=== PATIENT | female | born 1990 | race Caucasian/White ===

== ENCOUNTER 2017-09-28 12:24 | Emergency (ER) | payer SELFPAY ==
[2017-09-28 12:36] VITALS: BP 150/92; PULSE 93; RESP 22; TEMP 98.7; O2SAT 92
[2017-09-28] MEDS ORDERED: ASPI-516 CHEW (12:46)
[2017-09-28] MEDS ORDERED: SODIUM CHLOR 0.9% 1000 ML INJ 1,000 ML IV SCH (12:48)
--- NOTE | 2017-09-28 12:55 | PD ---
HPI Chief Complaint: Abdominal Pain Time Seen by Provider: 12:42 Travel History International Travel<30 days: No Contact w/Intl Traveler<30days: No Traveled to known affect area: No History of Present Illness HPI 27-year-old female presents to the emergency department for evaluation of abdominal pain that has been ongoing for 3 days. She states that her daughter was sick with a virus that she assumed she had a virus 2. However, she denies any fevers, cough, congestion. Patient states the pain is in the left lower quadrant. She states the last time she had this pain, she had PID. She denies any new sexual partners. She reports one sexual partner in the past 6 months. She denies any abnormal vaginal discharge. Patient denies any nausea, vomiting , diarrhea, constipation. No decreased appetite. Patient states that she was able to eat steak and shake while waiting for a bed. She reports no difficulties with the meal. She has no chronic medical problems and takes no prescribed medications. Patient is a G3, P1 with 3 previous miscarriages, one live . Patient reports last menstrual period was 2 weeks ago. 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) Influenza Vaccination: No ?: Unknown LMP: 09/14/17 : 4 Para: 1 Miscarriage: 3 Past Surgical History Surgical History: No Previous Surgery Social History Alcohol Use: Yes (occasionally) Tobacco Use: Yes Substance Use: No Allergies-Medications (Allergen,Severity, Reaction): Coded Allergies: No Known Allergies (Unverified , 09/28/17) Reported Meds & Prescriptions Reported Meds & Active Scripts Active Reported Aspirin 81 Mg Chew 81 Mg CHEW DAILY Review of Systems Except as stated in HPI: all other systems reviewed are Neg Physical Exam Narrative GENERAL: Well-nourished, well-developed female patient, ambulatory. Afebrile. SKIN: Focused skin assessment warm/dry. HEAD: Normocephalic. Atraumatic. EYES: No scleral icterus. No injection or drainage. NECK: Supple, trachea midline. No JVD or lymphadenopathy. CARDIOVASCULAR: Regular rate and rhythm without murmurs, gallops, or rubs. RESPIRATORY: Breath sounds equal bilaterally. No accessory muscle use. Lungs sounds clear to auscultation GASTROINTESTINAL: Abdomen soft and nondistended. Patient has mild tenderness over LUQ, LLQ. No rebound tenderness. MUSCULOSKELETAL: No cyanosis, or edema. BACK: Nontender without obvious deformity. No CVA tenderness. Data Data Last Documented VS Vital Signs Date Time Temp Pulse Resp B/P (MAP) Pulse Ox O2 Delivery O2 Flow Rate FiO2 09/28/17 12:36 98.7 93 22 150/92 (111) 92 Orders Orders Complete Blood Count With Diff (09/28/17 12:48) Comprehensive Metabolic Panel (09/28/17 12:48) Lipase (09/28/17 12:48) Urinalysis - C+S If Indicated (09/28/17 12:48) Iv Access Insert/Monitor (09/28/17 12:48) Ecg Monitoring (09/28/17 12:48) Oximetry (09/28/17 12:48) Sodium Chlor 0.9% 1000 Ml Inj (Ns 1000 M (09/28/17 12:48) Sodium Chloride 0.9% Flush (Ns Flush) (09/28/17 13:00) Ed Urine Pregnancytest Poc (09/28/17 12:48) Gc And Chlamydia Pcr (09/28/17 12:48) Wet Prep Profile (09/28/17 12:48) Ketorolac Inj (Toradol Inj) (09/28/17 14:30) Labs Laboratory Tests Test 09/28/17 13:00 09/28/17 13:04 09/28/17 14:16 White Blood Count 7.7 TH/MM3 Red Blood Count 4.10 MIL/MM3 Hemoglobin 12.5 GM/DL Hematocrit 37.0 % Mean Corpuscular Volume 90.1 FL Mean Corpuscular Hemoglobin 30.6 PG Mean Corpuscular Hemoglobin Concent 33.9 % Red Cell Distribution Width 13.1 % Platelet Count 178 TH/MM3 Mean Platelet Volume 9.7 FL Neutrophils (%) (Auto) 65.2 % Lymphocytes (%) (Auto) 22.9 % Monocytes (%) (Auto) 9.2 % Eosinophils (%) (Auto) 2.3 % Basophils (%) (Auto) 0.4 % Neutrophils # (Auto) 5.0 TH/MM3 Lymphocytes # (Auto) 1.8 TH/MM3 Monocytes # (Auto) 0.7 TH/MM3 Eosinophils # (Auto) 0.2 TH/MM3 Basophils # (Auto) 0.0 TH/MM3 CBC Comment DIFF FINAL Differential Comment Blood Urea Nitrogen 13 MG/DL Creatinine 0.44 MG/DL Random Glucose 85 MG/DL Total Protein 6.8 GM/DL Albumin 3.3 GM/DL Calcium Level 8.7 MG/DL Alkaline Phosphatase 65 U/L Aspartate Amino Transf (AST/SGOT) 10 U/L Alanine Aminotransferase (ALT/SGPT) 15 U/L Total Bilirubin 0.5 MG/DL Sodium Level 139 MEQ/L Potassium Level 3.7 MEQ/L Chloride Level 106 MEQ/L Carbon Dioxide Level 28.0 MEQ/L Anion Gap 5 MEQ/L Estimat Glomerular Filtration Rate 174 ML/MIN Lipase 62 U/L Urine Color YELLOW Urine Turbidity CLEAR Urine pH 7.0 Urine Specific Eads 1.025 Urine Protein NEG mg/dL Urine Glucose (UA) NEG mg/dL Urine Ketones NEG mg/dL Urine Occult Blood NEG Urine Nitrite NEG Urine Bilirubin NEG Urine Urobilinogen LESS THAN 2.0 MG/DL Urine Leukocyte Esterase NEG Urine WBC 1 /hpf Urine Squamous Epithelial Cells 1 /hpf Urine Mucus FEW /lpf Microscopic Urinalysis Comment CULT NOT INDICATED Clue Cells (Wet Prep) NONE SEEN Vaginal Trichomonas (Wet Prep) NONE SEEN Vaginal Yeast (Wet Prep) NONE SEEN MDM Medical Decision Making Medical Screen Exam Complete: Yes Emergency Medical Condition: Yes Medical Record Reviewed: Yes Differential Diagnosis gastroenteritis vs. UTI vs. cervicitis vs. diverticulitis Narrative Course 27-year-old female presents to the emergency department for evaluation of left lower abdominal pain for 3 days. Patient does appear well on exam and is able to eat without difficulty. CBC, CMP, lipase, UA, urine test are ordered and pending. Patient gives verbal consent for pelvic exam. CBC shows no acute abnormality. CMP .shows no acute abnormality. Lipase is 62. UA is negative for infection. UPT is negative. Wet prep is negative for clue cells, Trichomonas, yeast. Patient simply she may have pulled a muscle on reexamination. She is given strict return options. She does appear well on exam. Patient verbalizes agreement to this. She'll be discharged with a prescription for ibuprofen for pain. Patient verbalizes agreement and understanding. The patient was discharged in stable condition with instructions, including return instructions and follow up instructions. Diagnosis Primary Impression: Abdominal pain Qualified Codes: R10.9 - Unspecified abdominal pain Referrals: Primary Care Physician call for appointment Patient Instructions: Abdominal Pain (ED), General Instructions Departure Forms: Tests/Procedures, Work Release Enter return to work date: Sep 30, 2017 Additional Instructions: Take ibuprofen as started as needed with food for pain. Follow-up with your primary care physician. Return to the emergency department for any acute worsening symptoms including, but not limited to, worsening pain, right lower quadrant pain, intractable vomiting, fevers. Med/Other Pt SpecificInfo: Prescription(s) given Scripts Ibuprofen (Ibuprofen) 600 Mg Tab 600 MG PO TID Y for PAIN SCALE 1 TO 10, #21 TAB 0 Refills Prov: Fabienne Jay 09/28/17 Disposition: 01 DISCHARGE HOME Condition: Stable Fabienne Jay Sep 28, 2017 12:55
[2017-09-28] MEDS ORDERED: SODIUM CHLORIDE 0.9% FLUSH 10 ML FLUSH IV FLUSH PRN (13:00)
[2017-09-28 13:46] LABS: BASOPHIL % 0.4 % (0.0-2.0); EOSINOPHIL # 0.2 TH/MM3 (0-0.4); EOSINOPHIL % 2.3 % (0.0-4.0); HEMO FLAGS DIFF FINAL; LYMPH % 22.9 % (9.0-44.0); LYMPHOCYTE # 1.8 TH/MM3 (1.0-4.8); MEAN CELL VOLUME 90.1 FL (80.0-100.0); MEAN CORPUSCULAR HEMOGLOBIN 30.6 PG (27.0-34.0); MEAN CORPUSCULAR HGB CONC 33.9 % (32.0-36.0); MONO % 9.2 % (0.0-8.0); NEUT % 65.2 % (16.0-70.0); PLATELET COUNT 178 TH/MM3 (150-450); RED CELL DISTRIBUTION WIDTH 13.1 % (11.6-17.2); WHITE BLOOD COUNT 7.7 TH/MM3 (4.0-11.0)
[2017-09-28 14:13] LABS: ANION GAP 5 MEQ/L (5-15); AST (GOT) 10 U/L (15-37); BLOOD UREA NITROGEN 13 MG/DL (7-18); CHLORIDE 106 MEQ/L (98-107); GLOMERULAR FILTRATION RATE 174 ML/MIN (>89); POTASSIUM 3.7 MEQ/L (3.5-5.1); SODIUM (NA) 139 MEQ/L (136-145)
[2017-09-28 14:14] LABS: ALT (GPT) 15 U/L (10-53)
[2017-09-28 14:17] LABS: ALKALINE PHOSPHATASE 65 U/L (45-117); TOTAL BILIRUBIN ADULT 0.5 MG/DL (0.2-1.0)
[2017-09-28 14:28] LABS: BLOOD, URINE NEG (NEG); COMMENT (UR) CULT NOT INDICATED; CULTURE IF INDICATED CULT NOT INDICATED; GLUCOSE,URINE NEG (NEG); KETONE, URINE NEG (NEG); MUCUS URINE FEW /lpf (OCC); NITRITE,URINE NEG (NEG); SQUAMOUS EPITHELIAL CELL URINE 1 /hpf (0-5); URINE COLOR YELLOW (YELLW/STRAW)
[2017-09-28] MEDS ORDERED: KETOROLAC TROMETHAMINE 30 MG/ML (IVP) VIAL IV PUSH ONE (14:30)
[2017-09-28] MEDS ORDERED: IBUP-232 PO (15:20)
[2017-09-28 16:15] LABS: CHLAMYDIA PCR DETECTED (NOT DETECT); NEISSERIA PCR NOT DETECTED (NOT DETECT)
[2017-09-28 16:16] VITALS: BP 125/88; PULSE 78; RESP 20; O2SAT 98
== END 2017-09-28 16:18 | disposition home or self-care (01) ==
LOC: NEPE 12:24
DX: R10.30 Lower abdominal pain, unspecified (principal); Z72.0 Tobacco use
CPT/HCPCS: 80053; 81001; 83690; 84703; 85025; 87210; 87491; 87591; 96361; 96374; 99284; J1885; J7030

== ENCOUNTER → 2018-04-19 | Outpatient (CLI) | payer MEDICAID ==
[~2018-04-19] MED LIST: ASPI-516 CHEW; IBUP-232 PO
== END ==
LOC: HPND 10:05
PROVIDERS: ATTEND Obstetrics & Gynecology
DX: O99.111 Other diseases of the blood and blood-forming organs and certain disorders involving the immune mechanism complicating pregnancy, first trimester (principal); Z36.82 Encounter for antenatal screening for nuchal translucency; O99.331 Smoking (tobacco) complicating pregnancy, first trimester
CPT/HCPCS: 36415; 76813

== ENCOUNTER → 2018-05-25 | Outpatient (CLI) | payer MEDICAID | LOC: HPND 14:36 | PROVIDERS: ATTEND Obstetrics & Gynecology | DX: O99.112 Other diseases of the blood and blood-forming organs and certain disorders involving the immune mechanism complicating pregnancy, second trimester (principal); D68.51 Activated protein C resistance; O99.332 Smoking (tobacco) complicating pregnancy, second trimester | CPT/HCPCS: 76811 ==

== ENCOUNTER 2018-10-04 14:04 | Inpatient (IN) ==
[2018-10-04 15:20] LABS: Baso % (Auto) 0.2 % (0.0-2.0); Eos # (Auto) 0.2 th/mm3 (0.0-0.4); Eos % (Auto) 1.4 % (0.0-4.0); Hematocrit 38.2 % (35.0-46.0); Hemoglobin 13.2 gm/dL (11.6-15.3); Lymph # (Auto) 2.7 th/mm3 (1.0-4.8); Lymph % (Auto) 17.8 % (9.0-44.0); Mean Corpuscular HGB Conc 34.6 % (32.0-36.0); Mean Corpuscular Hemoglobin 31.5 pg (27.0-34.0); Mean Corpuscular Volume 90.9 fL (80.0-100.0); Mono # (Auto) 1.1 th/mm3 (0.0-0.9); Mono % (Auto) 7.1 % (0.0-8.0); Neut # (Auto) 11.2 th/mm3 (1.8-7.7); Neut % (Auto) 73.5 % (16.0-70.0); Platelet Count 231 th/mm3 (150-450); Red Cell Distribution Width 13.8 % (11.6-17.2); White Blood Count 15.2 th/mm3 (4.0-11.0)
[2018-10-04 15:29] LABS: INR 0.9 Ratio; Prothrombin Time 9.4 sec (9.8-11.6)
[2018-10-04] MEDS ORDERED: fentaNYL Citrate Inj 100 MCG/2 ML Ampul ONE (15:38)
[2018-10-04 15:47] LABS: Bilirubin,Urine Negative (Negative); Clarity,Urine Hazy (Clear); Color,Urine Yellow (Yellw/Straw); Glucose,Urine (UA) Negative (Negative); Hyaline Casts,Urine 1 /lpf (0-3); Leukocyte Esterase,Urine Moderate (Negative); Mucus,Urine Few /lpf (Occasional); Nitrite,Urine Negative (Negative); Specific Gravity,Urine 1.008 (1.002-1.035); Squamous Epithelial Cell,Urine 4 /hpf (0-5)
[2018-10-04 15:49] LABS: Amphetamine Urine With Conf Neg (Neg); Benzodiazepine Urine With Conf Neg (Neg)
[2018-10-04] MEDS ORDERED: Diphtheria/Tetanus/Pertussis Vaccine Inj 0.5 ML Syringe IM ONE (16:00)
[2018-10-04] MEDS ORDERED: Measles/Mumps/Rubella Vaccine Inj 0.5 ML Vial SQ ONE (16:00)
[2018-10-04] MEDS ORDERED: Influenza (Quadrivalent) Vaccine 0.5 ML Syringe IM ONE (16:00)
[2018-10-04] MEDS ORDERED: Sodium Chlor 0.9% Inj 500 ML IV.SIG PRN (16:05)
[2018-10-04] MEDS ORDERED: Oxytocin 30 Units/500ml Premix 30 UNITS/500 ML BAG IV.SIG ONE (16:05)
[2018-10-04] MEDS ORDERED: Sod Chloride 0.9% Inj 1,000 ML IV.CONT PRN (16:05)
[2018-10-04] MEDS ORDERED: Naloxone Inj 0.4 MG/ML Vial IV.PUSH PRN ×2 (16:05→19:17)
[2018-10-04] MEDS ORDERED: fentaNYL Citrate Inj 100 MCG/2 ML Ampul IV.PUSH PRN ×2 (16:05)
[2018-10-04] MEDS ORDERED: Citric Acid/Sodium Citrate Liq 30 ML UDC PO SCH (16:15)
[2018-10-04] MEDS ORDERED: fentaNYL 2MCG-Bupiv 0.125% Epi 150 ML EPIDURAL ONE (16:22)
[2018-10-04] MEDS ORDERED: fentaNYL Citrate Inj 100 MCG/2 ML Ampul EPIDURAL ONE (18:00)
[2018-10-04] MEDS ORDERED: fentaNYL 2MCG-Bupiv 0.125% Epi 150 ML EPIDURAL PRN (18:00)
[2018-10-04] MEDS ORDERED: Bisacodyl 10 MG Supp RECTAL PRN (19:17)
[2018-10-04] MEDS ORDERED: Oxytocin 30 Units/500ml Premix 30 UNITS/500 ML BAG IV.CONT PRN (19:17)
--- NOTE | 2018-10-04 19:22 | P.OBDELI ---
Weeks Gestation: 37 Patient Started Active Labor: Yes Medical Induction of Labor: No Artificial Rupture of Membrane: Yes Anesthesia: Epidural Episiotomy: none Vaginal Delivery: Normal Presentation: Occiput anterior Nuchal Cord: None Delayed Cord Clamping (45 sec): Yes Placenta: Spontaneous delivery, Uterus explored + Laceration: 1 deg (B/L periurethral ) Repair: Chromic interrupted Estimated blood loss (mL): 100 : Female Infant score (1 min): 8 score (5 min): 9
[2018-10-04] MEDS: Acetaminophen 325 MG Tablet PO PRN ×2 (19:47→23:47)
[2018-10-04] MEDS ORDERED: Zolpidem Tartrate 5 MG Tablet PO PRN (21:00)
[2018-10-04] MEDS: Witch Hazel 50%/Glyderin 12.5% 40 Pad Jar RECTAL PRN (22:16)
[2018-10-04] MEDS: Benzocaine 20% Top Spray 60 ML Can TOPICAL PRN (22:16)
[2018-10-04] MEDS: Senna/Docusate Sodium 8.6/50 MG Tablet PO SCH (22:16)
[2018-10-05] MEDS: Acetaminophen 325 MG Tablet PO PRN (04:58)
[2018-10-05] MEDS ORDERED: Enoxaparin Inj 40 MG/0.4 ML Syringe SQ SCH ×2 (09:00→21:00)
[2018-10-05] MEDS: Senna/Docusate Sodium 8.6/50 MG Tablet PO SCH ×2 (09:15→21:57)
[2018-10-05] MEDS ORDERED: Enoxaparin Inj 60 MG/0.6 ML Syringe SQ SCH (21:00)
--- NOTE | 2018-10-06 07:05 | P.PNOB ---
Subjective Post day: 2 Interval history: Doing well, pain controlled, ambulating without difficulty, voiding spontaneously, vaginal bleeding less than menses Objective Vital Signs/I&O: Vital Signs 10/05/18 08:00 10/05/18 08:30 10/05/18 20:00 Temperature 98.1 F 98.2 F 98.0 F Pulse Rate 76 70 Respiratory Rate 20 18 Blood Pressure 118/69 125/74 Intake & Output 10/05/18 10/06/18 10/06/18 18:59 06:59 18:59 Intake Total 200 / 200 100 / 100 Balance 200 / 200 100 / 100 Intake: IV 200 / 200 100 / 100 Ofirmev Inj 1,000 mg In 100 ml 200 / 200 100 / 100 @ 400 mls/hr IV.SIG Q6H [facility] Rx# :[id number] Result Diagrams: 10/04/18 14:45 Objective Remarks: GENERAL: Well-nourished, well-developed patient. CARDIOVASCULAR: Regular rate and rhythm without murmurs, gallops, or rubs. RESPIRATORY: Breath sounds equal bilaterally. No accessory muscle use. ABDOMEN/GI: Abdomen soft, non-tender. Fundus: Firm, non-tender at umbilicus. GENITOURINARY: Light to moderate bleeding. EXTREMITIES: No cyanosis or edema, non-tender, without signs of DVT. 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 [facility] Stop: 10/08/18 16:14 Enoxaparin Sodium (Lovenox Inj) 40 mg SQ HS [facility] Last Admin: 10/05/18 21:56 Dose: 40 mg Fentanyl Citrate (Fentanyl Inj) 50 mcg IV.PUSH Q1H PRN PRN Reason: Pain Scale 3 - 5 Fentanyl Citrate (Fentanyl Inj) 100 mcg IV.PUSH Q1H PRN PRN Reason: PAIN SCALE 6 TO 10 Last Admin: 10/04/18 15:45 Dose: 100 mcg Lactated Ringer's (Lr 1000 Ml Inj) 1,000 mls @ 125 mls/hr IV.CONT .Q8H [facility] Last Admin: 10/04/18 16:12 Dose: 125 mls/hr Lactated Ringer's (Lr 1000 Ml Inj) 1,000 mls @ 3,000 mls/hr IV.SIG UNSCH PRN PRN Reason: compromise or epidural Sodium Chloride (Ns Inj) 500 mls @ 1,000 mls/hr IV.SIG UNSCH PRN PRN Reason: SEE LABEL COMMENTS Sodium Chloride (Ns Inj) 1,000 mls @ 100 mls/hr IV.CONT .Q10H PRN PRN Reason: SEE LABEL COMMENTS Fentanyl/Bupivacaine/Sodium Chlor (Fentanyl 2 Mcg-Bupiv 0.125% Epi) 150 mls @ 12 mls/hr EPIDURAL PRN PRN PRN Reason: for Labor Pain Last Admin: 10/04/18 17:00 Dose: 12 mls/hr Oxytocin (Pitocin 30 Units/Ns 500 Ml Premix) 30 units in 500 mls @ 100 mls/hr IV.CONT UNSCH PRN PRN Reason: Heavy bleeding Ibuprofen (Motrin) 800 mg PO Q8H PRN PRN Reason: For Cramping Last Admin: 10/05/18 13:22 Dose: 800 mg Lactulose (Lactulose Liq) 30 ml PO DAILY PRN PRN Reason: SEVERE CONSITIPATION Lidocaine HCl (Xylocaine 1% Inj) 0.1 ml I-DERMAL PRN PRN PRN Reason: For IV start Stop: 10/07/18 16:04 Lidocaine HCl (Xylocaine 1% Inj) 10 ml INFILTRATN PRN PRN PRN Reason: For episiotomy repair Stop: 10/06/18 16:04 Mineral Oil (Muri-Lube Oil) 10 ml TOPICAL PRN PRN PRN Reason: PRN perineal massage Naloxone HCl (Narcan Inj) 0.1 mg IV.PUSH Q2M PRN PRN Reason: for opiate reversal Ondansetron HCl (Zofran Odt) 4 mg PO Q6H PRN PRN Reason: NAUSEA OR VOMITING Senna/Docusate Sodium (Kristin-Colace) 1 tab PO BID [facility] Last Admin: 10/05/18 21:57 Dose: 1 tab Sennosides (Senokot) 17.2 mg PO Q12H PRN PRN Reason: Moderate Constipation Sodium Chloride (Ns Flush) 2 ml IV.FLUSH BID [facility] Last Admin: 10/05/18 21:59 Dose: 2 ml Sodium Chloride (Ns Flush) 2 ml IV.FLUSH PRN PRN PRN Reason: FLUSH AFTER USING IV ACCESS Last Admin: 10/06/18 03:27 Dose: 2 ml Tramadol HCl (Ultram) 50 mg PO Q6H PRN PRN Reason: ABDOMINAL CRAMPING Last Admin: 10/06/18 03:27 Dose: 50 mg Witch Rosio/Glycerin (Tucks Pads) 1 applicatio RECTAL QID PRN PRN Reason: HEMORRHOIDS Last Admin: 10/04/18 22:16 Dose: 1 applicatio Zolpidem Tartrate (Ambien) 5 mg PO HS PRN PRN Reason: SLEEP Assessment and Plan - Plan 28-year-old status post at 37 weeks 1. day #2: Meeting milestones, discharge home today, discussed precautions, expectations and follow-up. -Female fetus 2. 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 Continue prophylactic Lovenox for 6 weeks . 3. Tobacco use: Counseled on cessation.
--- NOTE | 2018-10-06 07:06 | P.DS ---
Date of admission: 10/04/18 14:04 Primary care physician: Cherise Primary Care Physician Brief History from admission: 28-year-old who presented in labor had a spontaneous vaginal delivery and was discharged home on day #2 without complications. Please see other documentation for further details. DS: Medications - Discharge Medications Prescriptions: enoxaparin [Lovenox] 40 mg SUBCUT DAILY #30 ml ibuprofen 800 mg PO Q8H PRN #30 tab PRN Reason: For Cramping DS: Summary Hospital Course: See brief history - Time Spent with Patient Total time spent providing and/or coordinating discharge services: Less than 30 minutes Exam Vital signs: Vital Signs 10/05/18 08:00 10/05/18 08:30 10/05/18 20:00 Temperature 98.1 F 98.2 F 98.0 F Pulse Rate 76 70 Respiratory Rate 20 18 Blood Pressure 118/69 125/74 Intake & Output 10/05/18 10/06/18 10/06/18 18:59 06:59 18:59 Intake Total 200 / 200 100 / 100 Balance 200 / 200 100 / 100 Intake: IV 200 / 200 100 / 100 Ofirmev Inj 1,000 mg In 100 ml 200 / 200 100 / 100 @ 400 mls/hr IV.SIG Q6H [facility] Rx# :[id number] Results Procedures completed during hospitalization: Discharge Plan - Discharge Disposition Patient Disposition: 01 Discharge Home - Discharge Condition Condition: Good - Discharge Order Discharge Orders: Discharge Order (Routine); Ordered 10/06/18 Ordered By: Lupillo Borges - Physicians Team Primary Care Provider: Primary Care Cherise Walton Attending Provider: Yoana Bolaños - Rxs /Orders / Referrals /Forms Prescriptions: New enoxaparin [Lovenox] 40 mg/0.4 mL Syringe 40 mg subcut DAILY Qty: 30 RF: 2 ibuprofen 800 mg Tablet 800 mg PO Q8H PRN (Reason: For Cramping) Qty: 30 RF: 1 Continue Formula bottle 1 tab PO DAILY Referrals: Primary Care Cherise Walton [Primary Care Provider] - See Instructions - Discharge Instructions Patient Printed Instructions: Caring for Your Baby (DC), Vaginal Delivery (DC) Additional Instructions: call to make 2 week follow up
[2018-10-06] MEDS: Benzocaine 20% Top Spray 60 ML Can TOPICAL PRN (08:35)
[2018-10-06] MEDS: Senna/Docusate Sodium 8.6/50 MG Tablet PO SCH (08:35)
[2018-10-06] MEDS: Witch Hazel 50%/Glyderin 12.5% 40 Pad Jar RECTAL PRN (08:35)
[2018-10-06] MEDS ORDERED: Measles/Mumps/Rubella Vaccine Inj 0.5 ML Vial SQ ONE (08:45)
[2018-10-06 15:59] VITALS: BP 113/82; PULSE 80; RESP 20; TEMP 98
== END 2018-10-06 18:40 | disposition home or self-care (01) ==
LOC: H2E 14:04 → H1EA 21:16
PROVIDERS: ADMIT Obstetrics & Gynecology; ATTEND Obstetrics & Gynecology